=== PATIENT | male | born 1970 | race Caucasian/White ===

== ENCOUNTER 2019-03-29 14:01 | Emergency (ER) | payer SELFPAY ==
[2019-03-29] MEDS ORDERED: Ketorolac Tromethamine 30 MG/ML VIAL ONE (14:45)
[2019-03-29] MEDS ORDERED: Ondansetron ODT 4 MG TAB ONE (14:45)
--- NOTE | 2019-03-29 15:03 | RAD ---
EXAM: 3 views of the lumbosacral spine HISTORY: Low back pain COMPARISON: None FINDINGS: 3 views of the lumbosacral spine shows normal height and alignment of the vertebral bodies and intervertebral discs without fracture or subluxation. Moderate significant degenerative changes are seen at L5/S1 with intervertebral disc space narrowing and surrounding osteophyte formation. The sacroiliac joints are unremarkable. IMPRESSION: Degenerative changes at L5/S1 without acute osseous abnormality.
[2019-03-29] MEDS ORDERED: methylPREDNISolone Sod Succ/PF 125 MG/2 ML VIAL ONE (15:15)
--- NOTE | 2019-03-29 15:33 | RAD ---
EXAM: 2 views of the right hip HISTORY: Right hip pain COMPARISON: None FINDINGS: 2 views of the right hip shows no evidence of acute fracture or dislocation. Mild degenerat kaykay changes are seen. No soft tissue swelling is present. IMPRESSION: No evidence of acute osseous abnormality.
[2019-03-29] MEDS ORDERED: Orphenadrine Citrate 60 MG/2 ML VIAL ONE (16:16)
== END 2019-03-29 16:55 | disposition home or self-care (01) ==
LOC: MADERS 14:01
DX: M54.41 Lumbago with sciatica, right side (principal); F17.210 Nicotine dependence, cigarettes, uncomplicated
CPT/HCPCS: 72100; 96372; J1885; J2360; J2930; Q0162